=== PATIENT | female | born 1930 | race Caucasian/White ===

== ENCOUNTER 2017-01-14 18:31 | Emergency (ER) | payer OTHER ==
[~2017-01-14] VITALS: Ht 172.7 cm; Wt 72.6 kg
[~2017-01-14 18:31] MED LIST: IPR002IS; PHEN100C70; PHEN60IN; PRED5PAK2; PROAIR
[2017-01-14] MEDS ORDERED: ONDANSETRON HCL 4 MG/2 ML VIAL IV ONE (19:30)
[2017-01-14] MEDS ORDERED: MORPHINE SULFATE 4 MG/ML SYRG IV ONE (19:30)
[2017-01-14 19:43] LABS: Basophils # (auto) 0 uL; Basophils % (auto) 0.1 % (0.0-2.0); CONDITION Y; DEFINITIVE SEE PRINTOUT; Eosinophils # (auto) 0 uL; Eosinophils % (auto) 0.3 % (0.0-7.0); Hematocrit 37.8 % (36.0-46.0); Hemoglobin 12.3 g/dL (12.2-16.2); Lymphocytes # (auto) 0.5 uL; Lymphocytes % (auto) 3.7 % (10.0-50.0); Mean Corpuscular Hemoglobin 32.4 pg (28.0-32.0); Mean Corpuscular Hgb Conc. 32.4 g/dL (32.0-36.0); Mean Platelet Volume 9.8 fL (7.4-10.4); Monocytes # (auto) 0.8 uL; Monocytes % (auto) 5.3 % (0.0-12.0); Neutrophils # (auto) 13.1 uL; Neutrophils % (auto) 90.6 % (37.0-80.0); Platelet Count (auto) 34 10^3/uL (140-450); Red Cell Distribution Width 13.8 % (11.6-16.0); SUSPECT SEE PRINTOUT; White Blood Cell 14.4 10^3/uL (4.4-10.8)
[2017-01-14 19:50] LABS: Urine Bilirubin Negative (Negative); Urine Blood Negative /uL (Negative); Urine Color Yellow (Yellow); Urine Glucose Normal (Normal); Urine Ketone Negative (Negative); Urine Nitrite Negative (Negative); Urine RBC 4 /hpf (0 - 4); Urine Squamous Epithelial Cell FEW /hpf (<5); Urine Urobilinogen Normal (Negative); Urine pH 7.5 (5.0-8.0)
[2017-01-14 19:55] LABS: Albumin 2.8 g/dL (3.4-5.0); BUN/Creatinine Ratio 31.9; Potassium 4.5 mmol/L (3.5-5.1)
[2017-01-14 19:58] LABS: Bilirubin, Total 0.2 mg/dL (0.2-1.0); Total Protein 6.4 g/dL (6.4-8.2)
[2017-01-14] MEDS ORDERED: ACETAMINOPHEN 325 MG TAB PO ONE (20:00)
[2017-01-14 20:34] LABS: INR 1.04 (0.9-1.15); Partial Thromboplastin Time 24.6 sec (22.64-33.71); Prothrombin Time 11.3 sec (9.37-12.3)
[2017-01-14 20:49] LABS: Lactic Acid w/Reflex 3.2 mmol/L (0.4-2.0)
[2017-01-14 20:58] LABS: Platelet Estimate Markedly Decreased; RBC Morphology Normal
[2017-01-14 21:12] LABS: REFLEX LACTIC ACID YES OR NO YES
[2017-01-15] MEDS ORDERED: VANCOMYCIN 1GM/250ML D5W 250 ML IV ONE
[2017-01-15] MEDS ORDERED: cefTRIAXone 1GM/50ML D5W 50 ML IV ONE
[2017-01-15 00:08] VITALS: BP 95/42
== END 2017-01-15 00:30 | disposition short-term general hospital (02) ==
LOC: EDBD 18:31 → ER 18:34
DX: C67.9 Malignant neoplasm of bladder, unspecified (principal); K56.69 Other intestinal obstruction; K63.1 Perforation of intestine (nontraumatic); D72.829 Elevated white blood cell count, unspecified; N18.9 Chronic kidney disease, unspecified; Z88.2 Allergy status to sulfonamides; J44.9 Chronic obstructive pulmonary disease, unspecified; Z90.710 Acquired absence of both cervix and uterus; Z90.89 Acquired absence of other organs; Z85.51 Personal history of malignant neoplasm of bladder
CPT/HCPCS: 36415; 71010; 74176; 80053; 81001; 83605; 83690; 84484; 85025; 85610; 85730; 87040; 87077; 87186; 93005; 94761; 96365; 96367; 96375; 99285; J0696; J2270; J2405; J3370

== ENCOUNTER 2020-03-30 10:27 | Inpatient (IN) | payer OTHER ==
[~2020-03-30] VITALS: Ht 154.9 cm; Wt 78.0 kg
[2020-03-30] MEDS ORDERED: SODIUM CHLORIDE 0.9% 500 ML IVB ONE (10:30)
[2020-03-30 11:30] LABS: Albumin 2.3 g/dL (3.4-5.0); Calcium 8.1 mg/dL (8.5-10.1)
[2020-03-30 11:34] LABS: BUN/Creatinine Ratio 17.6; Bilirubin, Total 2.9 mg/dL (0.2-1.0); Lactic Acid w/Reflex 2.1 mmol/L (0.4-2.0); Total Protein 6.4 g/dL (6.4-8.2)
[2020-03-30 11:37] LABS: Potassium 2.8 mmol/L (3.5-5.1)
[2020-03-30] MEDS ORDERED: POTASSIUM CHL 20MEQ/100ML 100 ML IV ONE (11:45)
[2020-03-30 11:53] LABS: Hematocrit 37.5 % (36.0-46.0); Hemoglobin 12.5 g/dL (12.2-16.2); Mean Corpuscular Hemoglobin 32.6 pg (28.0-32.0); Mean Corpuscular Hgb Conc. 33.5 g/dL (32.0-36.0); Mean Corpuscular Volume 97.3 fL (80.0-100.0); Platelet Count (auto) 211 10^3/uL (140-450); Red Blood Cells 3.85 10^6/uL (4.0-5.20); Red Cell Distribution Width 13.9 % (11.8-14.3)
[2020-03-30 11:56] LABS: Basophils % (manual) 0 (0.0-2.0); Blast Cells 0; Eosinophils % (manual) 0 (0-7); Myelocytes % 0; Promyelocytes % 0; Reactive Lymphocytes 0
[2020-03-30] MEDS ORDERED: POTASSIUM CHLORIDE 20 MEQ, LIDOCAINE 1% (LOCAL ANESTH.) 2 ML in SODIUM CHL 0.9% 100 ML IV ONE (12:00)
[2020-03-30 12:39] LABS: Urine Bacteria MANY /hpf (None Seen); Urine Blood TRACE /uL (Negative); Urine Mucus FEW (None Seen); Urine Specific Gravity 1.012 (1.001-1.035); Urine WBC 17 /hpf (0 - 5)
[2020-03-30] MEDS ORDERED: LACTATED RINGER'S 1,000 ML IV ONE (12:45)
[2020-03-30] MEDS ORDERED: HYDROcodone-ACET 5/325MG TAB PO PRN (12:45)
[2020-03-30] MEDS ORDERED: LORazepam 0.5 MG TAB PO PRN (12:45)
[2020-03-30] MEDS ORDERED: DOCUSATE SOD 100 MG CAP PO PRN (12:45)
[2020-03-30] MEDS ORDERED: MORPHINE SULF INJ 2 MG/ML SYRINGE 1ML IV PRN ×3 (12:45)
[2020-03-30] MEDS ORDERED: ONDANSETRON HCL 4 MG/2 ML VIAL IV PRN (12:45)
[2020-03-30] MEDS ORDERED: NITROGLYCERIN 0.4 MG SL TAB SL PRN ×2 (12:45)
[2020-03-30] MEDS ORDERED: VANCOMYCIN PER PHARMACY 0 MG IV SCH (12:45)
[2020-03-30] MEDS ORDERED: POTASSIUM CHL 20 Meq TABLET PO ONE (12:45)
[2020-03-30] MEDS ORDERED: ACETAMINOPHEN 325 MG TAB PO PRN (12:45)
[2020-03-30] MEDS ORDERED: PIPERACILLIN-TAZOB 3.375GM 100 ML IV ONE (12:45)
[2020-03-30] MEDS ORDERED: POTASSIUM CHLORIDE 60 MEQ, LIDOCAINE 1% (LOCAL ANESTH.) 6 ML in SODIUM CHL 0.9% 500 ML IV ONE (12:45)
[2020-03-30] MEDS ORDERED: ALUM & MAG HYDROX-SIMETH LIQ(MAALOX) 30 ML PO PRN (12:45)
[2020-03-30] MEDS ORDERED: SODIUM CHLORIDE 0.9% 1,000 ML IV SCH (12:45)
[2020-03-30 12:49] LABS: Band Neutrophils % (manual) 23; Lymphocytes % (manual) 4 (10.0-50.0); Metamyelocytes % 2; Monocytes % (manual) 3 (0-12)
[2020-03-30] MEDS ORDERED: PHEN32.44 PO (12:58)
[2020-03-30] MEDS ORDERED: IPRA0.00 IN (12:58)
[2020-03-30] MEDS ORDERED: PHE100C PO (12:58)
[2020-03-30] MEDS ORDERED: ALBUAER3 IN (12:58)
[2020-03-30] MEDS ORDERED: CHOL100029 PO (12:59)
[2020-03-30] MEDS ORDERED: FURO1TAB33 PO (12:59)
[2020-03-30 13:16] LABS: Amphetamine Screen, Urine NEGATIVE (NEGATIVE); Barbiturate Scree,Urine POSITIVE (NEGATIVE); Benzodiazephine Screen, Urine NEGATIVE (NEGATIVE); Cannabinoid Screen, Urine NEGATIVE (NEGATIVE); Cocaine Screen, Urine NEGATIVE (NEGATIVE); Opiate Scree,Urine NEGATIVE (NEGATIVE); Phencyclidine Screen, Urine NEGATIVE (NEGATIVE)
[2020-03-30] MEDS ORDERED: ATORVASTATIN 20 MG TAB PO ONE (14:30)
[2020-03-30] MEDS: METOPROLOL TARTRATE 25 MG TAB PO SCH ×2 (14:30→17:27)
[2020-03-30] MEDS ORDERED: ENOXAPARIN SOD 60 MG/0.6 ML SYRINGE SC ONE (14:30)
[2020-03-30] MEDS ORDERED: FUROSEMIDE 20 MG/2 ML VIAL IV ONE (14:45)
[2020-03-30] MEDS ORDERED: LORazepam 2MG/ML-1ML VIAL IV PRN (14:45)
[2020-03-30] MEDS ORDERED: CALCIUM GLUC 4.65meq/50ml D5AE 50 ML IV ONE (15:00)
[2020-03-30] MEDS ORDERED: DEXTROSE (50%) 50ML SYRG IV PRN (15:15)
[2020-03-30] MEDS ORDERED: VANCOMYCIN 1GM/250ML 250 ML IV ONE (16:00)
[2020-03-30] MEDS: SODIUM CHLORIDE 0.9% 1,000 ML IV SCH ×2 (16:15→22:55)
[2020-03-30] MEDS: InsuLIN REG 1unit/0.01ml Soln (100units/ml) SC SCH ×2 (17:00→22:00)
[2020-03-30] MEDS: ACCU-CHEK COMFORT CURVE STRIP VI SCH ×2 (17:26→22:00)
[2020-03-30 18:00] LABS: INR 1.25 (0.9-1.15); Partial Thromboplastin Time 36.2 sec (23.0-31.2)
[2020-03-30] MEDS ORDERED: PIPERACILLIN-TAZOB 2.25GM 50 ML IV SCH (18:00)
[2020-03-30] MEDS: IPRATROPIUM BROM 0.5 MG/2.5ML INH SOL NEB SCH ×2 (18:00→18:08)
--- NOTE | 2020-03-30 18:08 | NUR ---
MED NEB TXS ARE ON HOLD AT THIS TIME UNTIL RESULTS OF COVID 19 TEST ARE BACK .
[2020-03-30] MEDS: FUROSEMIDE 20 MG/2 ML VIAL IV SCH (18:21)
[2020-03-30] MEDS: CALCIUM W/VIT D (600MG/400IU) TAB PO SCH (18:21)
[2020-03-30] MEDS: HYDROCORTISONE SOD SUCC 100 MG/2ML INJ VIAL IV SCH (18:22)
[2020-03-30] MEDS: PIPERACILLIN-TAZOB 2.25GM 50 ML IV SCH ×2 (18:22→22:00)
[2020-03-30] MEDS: ASCORBIC ACID 500 MG TAB PO SCH (22:00)
[2020-03-30] MEDS ORDERED: FAMOTIDINE (10MG/ML) 2ML VL IV SCH (22:00)
[2020-03-31] VITALS (7 sets, daily range): BP systolic 88–98; BP diastolic 45–58
[2020-03-31] MEDS: IPRATROPIUM BROM 0.5 MG/2.5ML INH SOL NEB SCH ×6 (01:57→22:23)
--- NOTE | 2020-03-31 02:38 | NUR ---
Social Service Consult Per protocol Pt verablized she had previously been on Home Health, but no longer is. Last day of her care per pt was on the . Pt verbalized that her daughter Claire lives with her Locally but is unable to drive. Daughter is unable to drive because she has cerebral palsy. Pt verbalized that she needs her illiac conduit bags from home. Pt also reported she has walker, and uses O2 PRN at home.
--- NOTE | 2020-03-31 02:40 | NUR ---
PT admit from ER to TELE Upon assessment, pt is alert and oriented x4 with periods of confusion. No SOB or difficulty breathing lung sounds clear upon auscultation, no cough present. Skin is intact with blanchable redness on coxyxx, dry skin on her feet. Pt is able to help turn during assessment, and able to stand up with standby assist to transfer to bedside [facility]. Pt has +3 edema on both feet. Pt reported that her right ileal conduit had previous been bloody, no hematuria noted. Pt oriented to unit, instructed to call for help. Bed alarm on, bed lowest position. T98.1 , O2 95 on room air, BP97/54, Pulse 73, RR18
--- NOTE | 2020-03-31 05:00 | NUR ---
Attempted to contact daughter Claire [phone] for Illiac conduit bag for pt, however unsuccessful in calling. Will endorse to AM ALEXIS.
[2020-03-31] MEDS: SODIUM CHLORIDE 0.9% 1,000 ML IV SCH ×3 (05:35→18:55)
[2020-03-31] MEDS: FUROSEMIDE 20 MG/2 ML VIAL IV SCH ×2 (06:00→18:00)
[2020-03-31] MEDS: HYDROCORTISONE SOD SUCC 100 MG/2ML INJ VIAL IV SCH ×4 (06:36→18:00)
[2020-03-31] MEDS: PIPERACILLIN-TAZOB 2.25GM 50 ML IV SCH ×3 (06:36→22:26)
[2020-03-31] MEDS: InsuLIN REG 1unit/0.01ml Soln (100units/ml) SC SCH ×4 (06:44→22:23)
[2020-03-31] MEDS: ACCU-CHEK COMFORT CURVE STRIP VI SCH ×4 (06:44→22:26)
--- NOTE | 2020-03-31 07:15 | NUR ---
Opening Shift Note Assumed care of patient, awake and alert. No S/S of distress/SOB or pain. Instructed on POC and to call for assist PRN, will continue to monitor for changes Q1hr and PRN.
--- NOTE | 2020-03-31 07:30 | NUR ---
Care endorsed to AM RN. Pt is resting in bed, no complaints of pain, no SOB noted. Side rails up 2x. Bed lowest position. Bed alarm on. IV continuous fluid running, per JUL.
[2020-03-31 09:21] LABS: Hematocrit 35.1 % (36.0-46.0); Hemoglobin 11.4 g/dL (12.2-16.2); Mean Corpuscular Hemoglobin 32.2 pg (28.0-32.0); Mean Corpuscular Hgb Conc. 32.3 g/dL (32.0-36.0); Mean Corpuscular Volume 99.5 fL (80.0-100.0); Platelet Count (auto) 186 10^3/uL (140-450); Red Blood Cells 3.53 10^6/uL (4.0-5.20); Red Cell Distribution Width 13.8 % (11.8-14.3); White Blood Cell 26.6 10^3/uL (4.4-10.8)
[2020-03-31 09:28] LABS: Basophils % (manual) 0 (0.0-2.0); Blast Cells 0; Eosinophils % (manual) 0 (0-7); Metamyelocytes % 0; Myelocytes % 0; Promyelocytes % 0; Reactive Lymphocytes 0
[2020-03-31 09:43] LABS: Band Neutrophils % (manual) 9; Lymphocytes % (manual) 3 (10.0-50.0); Monocytes % (manual) 1 (0-12)
[2020-03-31] MEDS ORDERED: CHOLECALCIFEROL (VITD3) 2,000 UNIT CAP PO SCH (10:00)
[2020-03-31] MEDS ORDERED: ENOXAPARIN SOD 60 MG/0.6 ML SYRINGE SC SCH (10:00)
[2020-03-31] MEDS: ASCORBIC ACID 500 MG TAB PO SCH ×2 (10:31→22:26)
[2020-03-31] MEDS: POTASSIUM CHL 20 Meq TABLET PO SCH (10:31)
[2020-03-31] MEDS: METOPROLOL TARTRATE 25 MG TAB PO SCH ×2 (10:35→23:10)
[2020-03-31] MEDS ORDERED: VANCOMYCIN 1GM/250ML 250 ML IV ONE (11:00)
--- NOTE | 2020-03-31 12:12 | NUR ---
This RN left a message for Dr. Judd regarding pt.'s having a reaction to VANCO (arm really red right underneath iv access). This RN stopped infusion and flushed the site which pt. said did not cause any pain. This RN will continue to monitor pt. Q1 and PRN.
--- NOTE | 2020-03-31 12:25 | NUR ---
Dr. Judd gave orders to Mohsen/Sadi Dasilva.
[2020-03-31] MEDS: CALCIUM W/VIT D (600MG/400IU) TAB PO SCH ×2 (14:06→18:00)
--- NOTE | 2020-03-31 14:40 | NUR ---
IV insertion IV access obtained by Flavia (charge nurse), via clean sterile technique by inserting 22 gauge catheter at right upper arm after one attempt(s). IV secured properly. No trauma to site. Patient tolerated procedure well.
[2020-03-31] MEDS: ATORVASTATIN 20 MG TAB PO SCH (22:25)
[2020-04-01] MEDS: HYDROCORTISONE SOD SUCC 100 MG/2ML INJ VIAL IV SCH ×3 (00:52→12:47)
[2020-04-01] MEDS: SODIUM CHLORIDE 0.9% 1,000 ML IV SCH ×2 (01:35→09:06)
--- NOTE | 2020-04-01 03:29 | NUR ---
PT activity Pt attempted to get up from bed. Per patient, trying to find daughter claire, pt confused, believes that Claire is present at the hospital, and able to knock on her door. Pt in search of walker, but reminded her she is in hospital. Pt able to alert to: person, place, situation, time. Pt reoriented, to lay back in bed. Bed alarm on, lowest postion. HOB elevated.
--- NOTE | 2020-04-01 03:36 | NUR ---
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 Per pt. Addendum: 04/01/20 at 0339 by VEENA REICH RN RN Amended: Links added.
[2020-04-01 05:00] VITALS: BP 111/81
[2020-04-01] MEDS: FUROSEMIDE 20 MG/2 ML VIAL IV SCH ×2 (06:42→18:00)
[2020-04-01] MEDS: PIPERACILLIN-TAZOB 2.25GM 50 ML IV SCH ×3 (06:42→18:00)
[2020-04-01] MEDS: InsuLIN REG 1unit/0.01ml Soln (100units/ml) SC SCH ×4 (06:42→22:00)
[2020-04-01] MEDS: ACCU-CHEK COMFORT CURVE STRIP VI SCH ×4 (07:00→22:00)
--- NOTE | 2020-04-01 07:15 | NUR ---
THIS RN RECEIVED REPORT FROM BUILDING INSULATION INSTALLER NURSE. PT. AWAKE AT BEDSIDE BUT APPEARS SOMEWHAT CONFUSED. THIS RN REORIENTED PT. TO SURROUNDINGS. PT. IS NOW IN BED EATING BREAKFAST. THIS RN WILL CONTINUE TO CHECK ON PT. Q1 HR. AND PRN.
[2020-04-01] MEDS: IPRATROPIUM BROM 0.5 MG/2.5ML INH SOL NEB SCH ×5 (08:18→22:52)
[2020-04-01 08:58] LABS: Calcium 8.2 mg/dL (8.5-10.1); Potassium 3.3 mmol/L (3.5-5.1)
[2020-04-01] MEDS: POTASSIUM CHL 20 Meq TABLET PO SCH (08:59)
[2020-04-01 09:00] VITALS: BP 121/61
[2020-04-01] MEDS: CALCIUM W/VIT D (600MG/400IU) TAB PO SCH ×2 (09:03→18:00)
[2020-04-01] MEDS: ASCORBIC ACID 500 MG TAB PO SCH (09:03)
[2020-04-01] MEDS: METOPROLOL TARTRATE 25 MG TAB PO SCH ×2 (09:05→22:00)
[2020-04-01] MEDS ORDERED: CHOLECALCIFEROL (VITD3) 1,000UNIT=25mCg TAB PO SCH (10:00)
--- NOTE | 2020-04-01 12:49 | NUR ---
THIS RN CALLED AND LEFT A VOICE MAIL FOR DR. WALSH TO INFORM HIM OF PT'S. REFUSAL TO HAVE NEW IV PLACED, MEDICATIONS GIVEN AND ULTRASOUND OF THE LEG DONE.
[2020-04-01 13:00] VITALS: BP 101/53
--- NOTE | 2020-04-01 14:49 | NUR ---
PT. REFUSED ALL MEDICATIONS AND A NEW IV TO BE PLACED. SHE WAS ADAMANT ABOUT WANTING TO GO HOME. THIS RN WILL LET THE DRMaryann KNOW.
[2020-04-01 17:00] VITALS: BP 122/62
[2020-04-01 22:00] VITALS: BP 117/73
--- NOTE | 2020-04-01 22:00 | NUR ---
Pt was tolerating care and reoriented to situation. Allowed for IV insertion and telebox monitoring, and medication administration.
[2020-04-01] MEDS: ATORVASTATIN 20 MG TAB PO SCH (22:51)
--- NOTE | 2020-04-02 | NUR ---
New IV placed by charge nurse. 20g Right wrist. One attempt.
[2020-04-02] MEDS: PIPERACILLIN-TAZOB 2.25GM 50 ML IV SCH ×2 (00:17→06:17)
[2020-04-02 05:00] VITALS: BP 113/55
--- NOTE | 2020-04-02 06:00 | NUR ---
Throughout the night pt was experiencing episodes of confusion. Able to reorient.
[2020-04-02] MEDS: InsuLIN REG 1unit/0.01ml Soln (100units/ml) SC SCH ×2 (06:17→11:30)
[2020-04-02] MEDS: FUROSEMIDE 20 MG/2 ML VIAL IV SCH (06:17)
[2020-04-02] MEDS: ACCU-CHEK COMFORT CURVE STRIP VI SCH ×2 (06:18→11:30)
[2020-04-02] MEDS: IPRATROPIUM BROM 0.5 MG/2.5ML INH SOL NEB SCH ×3 (06:52→15:00)
[2020-04-02] MEDS: CALCIUM W/VIT D (600MG/400IU) TAB PO SCH (07:55)
[2020-04-02 08:13] LABS: Basophils # (auto) 0 10 ^3/uL (0-0.2); Basophils % (auto) 0.1 % (0.0-2.0); Eosinophils # (auto) 0 10 ^3/uL (0-0.8); Eosinophils % (auto) 0.4 % (0.0-7.0); Hematocrit 38.2 % (36.0-46.0); Hemoglobin 12.6 g/dL (12.2-16.2); Lymphocytes # (auto) 1.3 10 ^3/uL (0.4-5.4); Lymphocytes % (auto) 12.1 % (10.0-50.0); Mean Corpuscular Hemoglobin 32.3 pg (28.0-32.0); Mean Corpuscular Volume 97.9 fL (80.0-100.0); Monocytes # (auto) 0.9 10 ^3/uL (0-1.3); Monocytes % (auto) 8.3 % (0.0-12.0); Neutrophils # (auto) 8.6 10 ^3/uL (1.6-8.6); Neutrophils % (auto) 79.1 % (37.0-80.0); Platelet Count (auto) 205 10^3/uL (140-450); Red Cell Distribution Width 13.7 % (11.8-14.3); White Blood Cell 10.9 10^3/uL (4.4-10.8)
[2020-04-02 08:49] LABS: BUN/Creatinine Ratio 48.5; Calcium 8.5 mg/dL (8.5-10.1)
[2020-04-02 08:56] LABS: Potassium 2.9 mmol/L (3.5-5.1)
[2020-04-02 09:00] VITALS: BP 115/54
[2020-04-02] MEDS ORDERED: POTASSIUM CHLORIDE 20 MEQ, LIDOCAINE 1% (LOCAL ANESTH.) 2 ML in SODIUM CHL 0.9% 100 ML IV ONE (10:00)
[2020-04-02] MEDS: METOPROLOL TARTRATE 25 MG TAB PO SCH (10:00)
[2020-04-02] MEDS ORDERED: POTA10TA51 PO (10:03)
[2020-04-02] MEDS ORDERED: CIPR-173 PO (10:03)
[2020-04-02] MEDS ORDERED: POTASSIUM CHL 20 Meq TABLET PO SCH (10:15)
[2020-04-02 13:00] VITALS: BP 120/60
[2020-04-02 14:43] LABS: Creatinine, Urine 15 mg/dL (30.0-125.0); Sodium Urine 60 mmol/L (40-220)
--- NOTE | 2020-04-02 16:06 | NUR ---
ss consult Per ss consult need transportation home. I have tried to call patients daughter Claire multiple times and her phone goes straight to voice mail that says her voice mail has not been set up yet. Claire will have to transport patient home or pay for transportation. Per Griselda shoe caser patient does not have a transportation benefit. Olamide ESPINOZA has been notified. Addendum: 04/02/20 at 1609 by Feli Tucker Amended: Links added.
--- NOTE | 2020-04-02 16:11 | NUR ---
Pt is an alert and oriented female that resides with her daughter, Claire, and uses home O2. Per MD order pt will also need fww, for PT and safety eval. Faxed clinical information to & and [facility]. Information received and pt to be followed 24-48 hours post discharge. Addendum: 04/02/20 at 1619 by CORINNA RANGEL Amended: Links added.
[2020-04-02 16:28] VITALS: BP 143/73
[2020-04-02 16:59] VITALS: BP 110/61
--- NOTE | 2020-04-02 18:00 | NUR ---
Discharge instructions given as ordered. Encourage to follow up with PMD as instructed. All questions and concerns addressed. Patient verbalized understanding. Medication reconciliation form completed and copy given to patient. MEDICATIONS GIVEN PER PHARMACY NEW MEDICATIONS IV removed with catheter intact, pressure dressing applied, OSTOMY CARE PROVIDED. Telemetry unit returned to ICU. Patient taken to vehicle via wheelchair with all personal belongings, accompanied by staff and family member. No distress noted at time of departure.
[2020-04-03] MEDS ORDERED: AMOX500T86 PO (09:48)
== END 2020-04-02 18:00 | disposition home health service (06) | DRG 690 ==
LOC: ER 10:27 → EDBD 10:27 → TELE 10:28 → TELE-WESTW 03-31 02:49
PROVIDERS: ADMIT Hospitalist; ATTEND Hospitalist
DX: N10 Acute pyelonephritis (principal); J96.12 Chronic respiratory failure with hypercapnia; I13.0 Hypertensive heart and chronic kidney disease with heart failure and stage 1 through stage 4 chronic kidney disease, or unspecified chronic kidney disease; N17.0 Acute kidney failure with tubular necrosis; Z20.828 Contact with and (suspected) exposure to other viral communicable diseases; C67.9 Malignant neoplasm of bladder, unspecified; E87.6 Hypokalemia; I50.9 Heart failure, unspecified; N18.9 Chronic kidney disease, unspecified; R77.8 Other specified abnormalities of plasma proteins; J44.9 Chronic obstructive pulmonary disease, unspecified; E66.9 Obesity, unspecified; E11.22 Type 2 diabetes mellitus with diabetic chronic kidney disease; G40.909 Epilepsy, unspecified, not intractable, without status epilepticus; T50.2X5A Adverse effect of carbonic-anhydrase inhibitors, benzothiadiazides and other diuretics, initial encounter; Z68.32 Body mass index [BMI] 32.0-32.9, adult; Z88.2 Allergy status to sulfonamides; Y92.89 Other specified places as the place of occurrence of the external cause; Z82.5 Family history of asthma and other chronic lower respiratory diseases; Z85.51 Personal history of malignant neoplasm of bladder; Z90.710 Acquired absence of both cervix and uterus; Z93.6 Other artificial openings of urinary tract status; Z82.49 Family history of ischemic heart disease and other diseases of the circulatory system
CPT/HCPCS: 36415; 36600; 51702; 70450; 71045; 80048; 80053; 80061; 80202; 80307; 81001; 82565; 82570; 82805; 82962; 83036; 83605; 83880; 84156; 84300; 84484; 85007; 85025; 85027; 85379; 85610; 85730; 86850; 86900; 86901; 87040; 87086; 87088; 87186; 93005; 93306; 94640; 96365; 96368; 96372; 96375; G0378; J0610; J1815; J2001; J2543; J3490

== ENCOUNTER 2020-06-14 05:17 | Emergency (ER) | payer OTHER ==
[~2020-06-14] VITALS: Ht 160 cm; Wt 45.4 kg
[~2020-06-14 05:17] MED LIST changes: +ALBUAER3 IN; +AMOX500T86 PO; +CHOL100029 PO; +CIPR-173 PO; +FURO1TAB33 PO; -IPR002IS; +IPRA0.00 IN; +PHE100C PO; -PHEN100C70; +PHEN32.44 PO; -PHEN60IN; +POTA10TA51 PO; -PRED5PAK2; -PROAIR
[2020-06-14 07:50] LABS: Basophils # (auto) 0.1 10 ^3/uL (0-0.2); Basophils % (auto) 0.7 % (0.0-2.0); Eosinophils # (auto) 0 10 ^3/uL (0-0.8); Eosinophils % (auto) 0.3 % (0.0-7.0); Hematocrit 41.7 % (36.0-46.0); Hemoglobin 13.9 g/dL (12.2-16.2); Lymphocytes # (auto) 0.9 10 ^3/uL (0.4-5.4); Lymphocytes % (auto) 7.2 % (10.0-50.0); Mean Corpuscular Hemoglobin 32.4 pg (28.0-32.0); Mean Corpuscular Hgb Conc. 33.3 g/dL (32.0-36.0); Mean Corpuscular Volume 97.4 fL (80.0-100.0); Monocytes # (auto) 1.2 10 ^3/uL (0-1.3); Monocytes % (auto) 9.2 % (0.0-12.0); Neutrophils # (auto) 10.8 10 ^3/uL (1.6-8.6); Neutrophils % (auto) 82.6 % (37.0-80.0); Platelet Count (auto) 287 10^3/uL (140-450); Red Blood Cells 4.28 10^6/uL (4.0-5.20); Red Cell Distribution Width 13.1 % (11.8-14.3); White Blood Cell 13.1 10^3/uL (4.4-10.8)
[2020-06-14 08:09] LABS: Albumin 2.9 g/dL (3.4-5.0); Anion Gap 6 (5-15); Blood Urea Nitrogen 14 mg/dL (7-18); Calcium 8.4 mg/dL (8.5-10.1); Carbon Dioxide 28 mmol/L (21-32); Chloride 106 mmol/L (98-107); Glucose 131 mg/dL (74-106); Sodium 140 mmol/L (136-145)
[2020-06-14 08:20] LABS: Alanine Aminotransferase 17 U/L (13-56); Alkaline Phosphatase 121 U/L (45-117); Aspartate Aminotransferase 15 U/L (15-37); BUN/Creatinine Ratio 25.9; Bilirubin, Total 0.5 mg/dL (0.2-1.0); GFR African American 137 mL/min; GFR Non-African American 113 mL/min; Total Protein 7.6 g/dL (6.4-8.2)
[2020-06-14 08:43] LABS: Potassium 2.7 mmol/L (3.5-5.1)
[2020-06-14 08:49] LABS: Urine Bacteria MANY /hpf (None Seen); Urine Blood Negative /uL (Negative); Urine Mucus FEW (None Seen); Urine Specific Gravity 1.009 (1.001-1.035); Urine WBC 43 /hpf (0 - 5)
[2020-06-14] MEDS ORDERED: POTASSIUM EFFERVESENT TAB 25 MEQ PO ONE (09:00)
[2020-06-14] MEDS ORDERED: cefTRIAXone 1GM/50ML D5W 50 ML IV ONE (09:00)
[2020-06-14] MEDS ORDERED: ACETAMINOPHEN 325 MG TAB PO ONE (10:00)
[2020-06-14 12:16] VITALS: BP 109/59
== END 2020-06-14 12:28 | disposition home or self-care (01) ==
LOC: EDBD 05:17 → ER 05:17
DX: L03.113 Cellulitis of right upper limb (principal); M65.9 Synovitis and tenosynovitis, unspecified; R07.9 Chest pain, unspecified; E87.6 Hypokalemia; N39.0 Urinary tract infection, site not specified; J44.9 Chronic obstructive pulmonary disease, unspecified; I10 Essential (primary) hypertension; Z90.710 Acquired absence of both cervix and uterus; Z20.822 Contact with and (suspected) exposure to COVID-19
CPT/HCPCS: 36415; 71045; 73200; 80053; 81001; 84484; 85025; 87426; 96365; 99285; J0696